=== PATIENT | male | born 1940 | race Caucasian/White ===

== ENCOUNTER 2019-03-01 12:42 | Outpatient (CLI) | payer MEDICARE ==
[2019-03-01 14:02] LABS: Estimated GFR-MDRD - POC Greater than 90
--- NOTE | 2019-03-01 14:02 | CT ---
CT Cervical Spine WO Con History: Neck pain. M 54.2. M 89.8X1 pain in scapula Comparison: None. Findings: Moderate vascular calcifications of the carotid bulbs. Lung apices are clear. ACDF hardware at C6/C7 without hardware complication. Adequate perfusion of the disc space. The odontoid process is intact. Occipital condyles are intact. Fusion of the left C2/C3 facets. Levels are as follows: C2/3: Moderate uncinate process appear to be. Perfusion of the left C2/C3 facet. Moderate left neural foraminal narrowing. Small central disc osteophyte complex. C3/C4: Advanced degenerative disc space height loss. Broad-based posterior disc osteophyte complex. M ild hypertrophic facet arthrosis. Moderate left and moderate to severe right neural foraminal narrowing. Spinal canal measures approximately 8 mm. C4/C5: Mild uncinate process hypertrophy. Moderate right hypertrophic facet arthropathy. Moderate rig ht and mild left neural foraminal narrowing. C5/C6: Minimal degenerative disc space height loss. Mild uncinate process approach.. Mild right hyper trophic facet arthropathy. There is a circumferential disc bulge greatest in the central zone with effacement of ventral CSF space and narrowing spinal canal to approximately 9 mm. C6/C7, prior discectomy change and anterior fusion. There is a broad-based posterior osteophyte causi ng moderate to severe bilateral neural foraminal narrowing. C7/T1: Moderate hypertrophic facet arthrosis. 2 mm anterolisthesis. Moderate bilateral neural foramin al narrowing. 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 Impression: Multilevel spondylosis as described with neural foraminal and spinal canal narrowing.
--- NOTE | 2019-03-01 15:10 | RAD ---
CERVICAL SPINE SERIES 5 VIEWS WITH FLEXION AND EXTENSION: Date: 03/01/19 HISTORY: Neck pain. FINDINGS: The vertebral bodies are normal in height. There is disc narrowing at C3-4. There is anterior cervica l fusion at the C6-7 level. I do not appreciate any abnormal motion on the flexion or extension views . IMPRESSION: Arthritic changes and postop changes of the spine. POS: [facility]
--- NOTE | 2019-03-01 15:49 | MRI ---
MRI CERVICAL SPINE WITH AND WITHOUT CONTRAST: 03/01/2019 HISTORY: A 78-year-old male with cervicalgia - M54.2, neck pain; cervical radiculopathy, M89.8X1, pain in sca pula. COMPARISON: No prior MRIs. FINDINGS: Vertebral body heights are maintained. Cervical spinal cord is normal in size and signal. No syrinx. C1-C2: No high grade central stenosis. C2-C3: Mild ligamentum flavum thickening. Mild central spinal canal stenosis. Mild right facet DJD. B sohail hypertrophy of the left facet complex with ankylosis. Mild right neural foraminal stenosis. Mild to moderate left neural foraminal stenosis. Ligamentum flavum thickening. C3-C4: Minimal degenerative retrolisthesis of C3 on C4. Moderate disk space narrowing. Broad-based di sk-osteophytic bar complex indents the ventral surface of the spinal cord. Moderately thickened ligam entum flavum minimally indents the dorsal surface of the spinal cord. Overall severe central spinal c anal stenosis. Severe bilateral neural foraminal stenosis, right worse than left. Slight enhancement and mild to moderate bone marrow edema of the endplates and much of the body of C3. This is nonspeci fic but probably represents modic type I changes. C4-C5: Disk space maintained. No high grade central stenosis. Small central focal disk-osteophyte com plex slightly indents the ventral surface of the spinal cord but does not displace the spinal cord po steriorly. Severe right neural foraminal stenosis. Mild to moderate left neural foraminal stenosis. M ild to moderate right facet DJD. Normal left facet joint. C5-C6: Central focal small to moderate sized disk herniation indents the ventral aspect of the spina l cord and mildly displaces the spinal cord posteriorly. Despite this, the overall degree of central spinal canal stenosis is only mild to moderate. Mild right neural foraminal stenosis. Moderate to sev ere left neural foraminal stenosis. Mild to moderate right facet DJD. Normal left facet joint. No sig nificant disk space narrowing. C6-C7: Anterior ACDF metallic hardware. Successful ankylosis between the C6 and C7 vertebral bodies. Normal bilateral facet joints. Central bony hypertrophy of the vertebral bodies results in moderate t o severe central spinal canal stenosis. Large uncinate process osteophytes cause somewhat severe bila teral neural foraminal stenosis. C7-T1: Disk space maintained. Moderate to severe bilateral facet DJD cause mild grade 1 anterolisthes is of C7 on T1. Mild to moderate central spinal canal stenosis. Moderate bilateral neural foraminal s tenosis. IMPRESSION: 1. Somewhat severe central spinal canal stenosis at C3-C4. 2. 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 3. 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 4. Multilevel high grade neural foraminal stenosis. POS: [facility]
== END 2019-03-01 12:43 | disposition home or self-care (01) ==
LOC: TBSIIMAG 12:42
PROVIDERS: ATTEND Physician Assistant Surgical
DX: M54.2 Cervicalgia (principal); M47.812 Spondylosis without myelopathy or radiculopathy, cervical region; M48.02 Spinal stenosis, cervical region; M50.222 Other cervical disc displacement at C5-C6 level; Z98.1 Arthrodesis status
CPT/HCPCS: 72050; 72125; 72156; 82565; A9577